=== PATIENT | female | born 1950 | race Caucasian/White ===

== ENCOUNTER 2019-12-16 17:10 | Observation (INO) | payer MEDICARE, BC, SELFPAY ==
[2019-12-16] VITALS (23 sets, daily range): BP systolic 115–159; BP diastolic 67–113; PULSE 69–185; RESP 13–34; TEMP 36.4; O2SAT 93–98; BMI 28.3
--- NOTE | 2019-12-16 17:26 | DI.RAD.S_ITS ---
PROCEDURE: XR CHEST 1V INDICATIONS: chest pain TECHNIQUE: One view of the chest was acquired. COMPARISON: None. FINDINGS: Surgical changes and devices: None. Lungs and pleura: An incomplete inspiratory result is noted, causing a crowded appearance to the lung markings. No focal infiltrates are seen. No pneumothorax or significant pleural effusions are seen. Mediastinum: Mediastinal contours appear normal. Heart size is normal. Bones and chest wall: No suspicious bony lesions. Age-appropriate bony degenerative changes are seen. Overlying soft tissues appear unremarkable. IMPRESSION: Unremarkable portable chest for age. Dictated by: Daniel Arce M.D. on 12/16/2019 at 17:01 Approved by: Daniel Arce M.D. on 12/16/2019 at 17:01
[2019-12-16 17:40] LABS: Add Manual Diff / Slide Review NO; Basophils Absolute Auto 100 /uL (0-100); Basophils Percent Auto 1.3 % (0-2); Eosinophils Absolute Auto 0 /uL (0-450); Eosinophils Percent Auto 0.7 % (2-4); Hematocrit 46.1 % (36-46); Hemoglobin 15.4 g/dL (12.0-16.0); Lymphocytes Absolute Auto 2400 /uL (1100-4500); Lymphocytes Percent Auto 34.4 % (25-40); Mean Corpuscular HGB Conc 33.5 % (30-36); Mean Corpuscular Hemoglobin 31.7 PG (26-34); Mean Corpuscular Volume 94.6 fL (80-100); Monocytes Absolute Auto 600 /uL (0-900); Monocytes Percent Auto 8.6 % (3-14); Neutrophils Absolute Auto 3800 /uL (1500-7000); Platelet Count 125 X10^3/uL (150-400); Red Blood Cell Count 4.87 X10^6/uL (4.0-5.2); Red Cell Distribution Width 14.1 % (11.6-14.8); White Blood Cell Count 6.9 X10^3/uL (4.5-11.0)
[2019-12-16] MEDS: DILTIAZEM 125 MG/125 ML PIGGYBACK IV (17:50)
[2019-12-16] MEDS: dilTIAZem 5 MG/ML SDV 20 MG IV (17:50)
[2019-12-16 17:51] LABS: INR 1.1 (0.9-1.3); Prothrombin Time 12.7 SECONDS (10.1-12.7)
[2019-12-16 17:53] LABS: PTT Partial Thromboplastin Tim 27 SECONDS (26.4-36.2)
[2019-12-16 17:56] LABS: Alanine Aminotransferase 67 IU/L (<35); Albumin 3.9 g/dL (3.5-5.0); Albumin Globulin Ratio 1.6 (1.0-2.8); Alkaline Phosphatase 77 U/L (38-126); Aspartate Aminotransferase 67 IU/L (14-36); BUN Creatinine Ratio 26.7 (6-22); Bilirubin Total 0.9 mg/dL (0.2-1.3); Blood Urea Nitrogen 24 mg/dL (7-17); Calcium 9.4 mg/dL (8.4-10.2); Carbon Dioxide 20 mmol/L (22-32); Chloride 109 mmol/L (98-107); Creatine Kinase 70 U/L (30-135); Estimated Glomerular Filt Rate > 60.0 mL/min (>60); Globulin 2.5 g/dL (1.7-4.1); Glucose 110 mg/dL (80-110); HEMOLYSIS < 15 (0-50); Lipase 78 U/L (23-300); Magnesium 1.7 mg/dL (1.6-2.3); Sodium 138 mmol/L (137-145); Total Protein 6.4 g/dL (6.3-8.2)
[2019-12-16 17:57] LABS: D Dimer 324 ng/mL (<230)
[2019-12-16] MEDS: APIXABAN 5 MG TABLET PO (17:57)
[2019-12-16 18:08] LABS: Troponin I < 0.012 ng/mL (0.01-0.034)
--- NOTE | 2019-12-16 18:27 | ED.CHESTPAIN ---
HPI - Chest Pain General Chief Complaint: Chest Pain Stated Complaint: HARD TO CATCH A BREATH NOT EATING WELL NOT SLEEPIN Time Seen by Provider: 12/16/19 17:34 Source: patient Mode of arrival: Ambulatory Limitations: no limitations History of Present Illness HPI narrative: 69-year-old woman presents with severe dyspnea and is found to be in atrial fibrillation with rapid ventricular response. She notes that her symptoms started in mid September with increasing sinus pain and pressure and reflux issues. She saw her physician in [place] was started on proton pump inhibitor. Seen again in October with continued complaints of sinus fullness postnasal drip and intermittent episodes of dyspnea. This visit was via telemedicine and it was felt to be acute bacterial sinusitis and antibiotics as well as decongestants were prescribed. She did feel a bit better at that point. Through the month of October she had continued intermittent episodes of severe dyspnea that she attributed to mask wearing. They had no sensation of tachycardia or chest pain. With today she describes a feeling of general malaise and ?crappy? feeling for the last 4 days with poor sleep difficulty laying flat in significantly increasing dyspnea. Again no chest pain and no sensation of palpitations or rapid heart rate. No lower extremity edema. Of note, they do live in [facility] and have been traveling back and forth between [facility] recently. The travel is driving. Related Data Allergies Allergy/AdvReac Type Severity Reaction Status Date / Time No Known Drug Allergies Allergy Verified 12/16/19 17:18 Review of Systems Review of Systems Narrative: Pertinent positive and negative findings as per HPI Remainder of review of systems is otherwise unremarkable for Constitutional: Fevers, CV: Chest pain, palpitations, Respiratory: Cough, wheeze, GI: Nausea, vomiting, diarrhea, change in bowel habits, black or bloody stools : Dysuria, hematuria, flank pain MS: Muscle weakness, numbness, joint swelling or warmth Skin: Rashes, nonhealing lesions Neuro: Syncope, dizziness, tingling Patient History Medical History Acid reflux (Acute) Atrial fibrillation (Acute) Social History Smoking Status: Never smoker Smoking Status: Never smoker alcohol intake frequency: holidays/special occasions only Substance Use Type: does not use Exam Narrative Exam Narrative: General: Healthy appearing, acutely dyspneic able to speak and only 2-3 word sentences not using accessory muscles HEENT: Moist mucous membranes, normal sclera with reactive pupils, Neck: No JVD, supple Respiratory: Lungs are clear to auscultation, no wheezing no rales no rhonchi. Full and symmetrical air movement Cardiac: Rapid and irregular without murmurs or bruits Abdomen: Soft nontender good bowel tones, no flank pain Skin: Warm and dry, no rashes Neurologic: Grossly neurologically intact with no obvious asymmetries or abnormalities Extremities: No trauma, well perfused, no lower extremity edema Psych: Cooperative, appropriate insight and affect Initial Vital Signs Initial Vital Signs: Vital Signs Temperature 97.5 F L 12/16/19 17:18 Pulse Rate 69 12/16/19 17:18 Respiratory Rate 28 H 12/16/19 17:18 Pulse Oximetry 98 12/16/19 17:18 Course Orders Ordered: ED Orders 12/16/19 17:26 XR chest 1V Stat EKG-12 Lead Stat 12/16/19 17:32 Complete Blood Count AUTO DIFF Stat Comprehensive Metabolic Panel Stat D Dimer Stat Lipase Stat Magnesium Stat Partial Thromboplastin Time Stat Prothrombin Time INR Stat Troponin & CK Cardiac Panel Stat 12/16/19 18:42 CT angio chest PE protocol Stat DILTIAZEM (Diltiazem 125 Mg/125 Ml-D5w) 125 mg in 125 mls @ 5 mls/hr IV TITRATE MIK; Protocol Last Titration: 12/16/19 18:32 Dose: 10 mg/hr, 10 mls/hr Documented by: Admin: 12/16/19 17:50 Dose: 5 mg/hr, 5 mls/hr Documented by: HOMERO Discontinued Medications Apixaban (Eliquis) 5 mg PO NOW ONE Stop: 12/16/19 17:48 Last Admin: 12/16/19 17:57 Dose: 5 mg Documented by: HOMERO Diltiazem HCl (Cardizem) 20 mg IV NOW ONE Stop: 12/16/19 17:45 Last Admin: 12/16/19 17:50 Dose: 20 mg Documented by: HOMERO Metoprolol Tartrate (Lopressor) 12.5 mg PO NOW ONE Stop: 12/16/19 18:50 Last Admin: 12/16/19 18:57 Dose: 12.5 mg Documented by: MARIA MM Vital Signs Vital signs: Vital Signs - 8 hr 12/16/19 17:18 12/16/19 17:27 12/16/19 17:28 Temperature 97.5 F L Pulse Rate 69 184 H Respiratory Rate 28 H 33 H Blood Pressure 157/103 H Pulse Oximetry 98 95 12/16/19 17:30 12/16/19 17:50 12/16/19 17:52 Temperature Pulse Rate 185 H 153 H 158 H Respiratory Rate 21 13 Blood Pressure 154/113 H 159/99 H Pulse Oximetry 96 97 12/16/19 17:54 12/16/19 17:56 12/16/19 17:57 Temperature Pulse Rate 148 H 101 H 105 H Respiratory Rate 20 21 25 H Blood Pressure 128/67 128/79 Pulse Oximetry 97 95 96 12/16/19 17:58 12/16/19 17:59 12/16/19 18:00 Temperature Pulse Rate 104 H 101 H 104 H Respiratory Rate 27 H 26 H 20 Blood Pressure 121/88 120/86 Pulse Oximetry 95 94 95 12/16/19 18:01 Temperature Pulse Rate 106 H Respiratory Rate 23 Blood Pressure 132/82 Pulse Oximetry 94 MDM - Chest Pain Medical Records Data Attestation: I reviewed the patient's medical records. Lab Data Attestation: I reviewed the patient's lab results. Result diagrams: 12/16/19 17:32 12/16/19 17:32 Labs: Lab Results 12/16/19 12/16/19 12/16/19 Range/Units 17:32 17:32 17:32 WBC 6.9 (4.5-11.0) X10^3/uL RBC 4.87 (4.0-5.2) X10^6/uL Hgb 15.4 (12.0-16.0) g/dL Hct 46.1 H (36-46) % MCV 94.6 (80-100) fL MCH 31.7 (26-34) PG MCHC 33.5 (30-36) % RDW 14.1 (11.6-14.8) % Plt Count 125 L (150-400) X10^3/uL Neut % (Auto) 55.0 (50-75) % Lymph % (Auto) 34.4 (25-40) % Dale % (Auto) 8.6 (3-14) % Eos % (Auto) 0.7 L (2-4) % Baso % (Auto) 1.3 (0-2) % Neut # (Auto) 3800 (9946-8291) /uL Lymph # (Auto) 2400 (8691-9303) /uL Dale # (Auto) 600 (0-900) /uL Eos # (Auto) 0 (0-450) /uL Baso # (Auto) 100 (0-100) /uL PT 12.7 (10.1-12.7) SECONDS INR 1.1 (0.9-1.3) APTT 27 (26.4-36.2) SECONDS D-Dimer (<230) ng/mL Sodium 138 (137-145) mmol/L Potassium 4.0 (3.4-5.1) mmol/L Chloride 109 H (98-107) mmol/L Carbon Dioxide 20 L (22-32) mmol/L BUN 24 H (7-17) mg/dL Creatinine 0.90 (0.52-1.04) mg/dL Estimated GFR > 60.0 (>60) mL/min BUN/Creatinine Ratio 26.7 H (6-22) Glucose 110 (80-110) mg/dL Calcium 9.4 (8.4-10.2) mg/dL Magnesium 1.7 (1.6-2.3) mg/dL Total Bilirubin 0.9 (0.2-1.3) mg/dL AST 67 H (14-36) IU/L ALT 67 H (<35) IU/L Alkaline Phosphatase 77 (38-126) U/L Total Creatine Kinase 70 (30-135) U/L CK-MB (CK-2) TNP CK-MB (CK-2) Rel Index TNP Troponin I < 0.012 (0.01-0.034) ng/mL Total Protein 6.4 (6.3-8.2) g/dL Albumin 3.9 (3.5-5.0) g/dL Globulin 2.5 (1.7-4.1) g/dL Albumin/Globulin Ratio 1.6 (1.0-2.8) Lipase 78 (23-300) U/L 08// Range/Units 17:32 WBC (4.5-11.0) X10^3/uL RBC (4.0-5.2) X10^6/uL Hgb (12.0-16.0) g/dL Hct (36-46) % MCV (80-100) fL MCH (26-34) PG MCHC (30-36) % RDW (11.6-14.8) % Plt Count (150-400) X10^3/uL Neut % (Auto) (50-75) % Lymph % (Auto) (25-40) % Dale % (Auto) (3-14) % Eos % (Auto) (2-4) % Baso % (Auto) (0-2) % Neut # (Auto) (6543-8621) /uL Lymph # (Auto) (3662-7947) /uL Dale # (Auto) (0-900) /uL Eos # (Auto) (0-450) /uL Baso # (Auto) (0-100) /uL PT (10.1-12.7) SECONDS INR (0.9-1.3) APTT (26.4-36.2) SECONDS D-Dimer 324 H (<230) ng/mL Sodium (137-145) mmol/L Potassium (3.4-5.1) mmol/L Chloride (98-107) mmol/L Carbon Dioxide (22-32) mmol/L BUN (7-17) mg/dL Creatinine (0.52-1.04) mg/dL Estimated GFR (>60) mL/min BUN/Creatinine Ratio (6-22) Glucose (80-110) mg/dL Calcium (8.4-10.2) mg/dL Magnesium (1.6-2.3) mg/dL Total Bilirubin (0.2-1.3) mg/dL AST (14-36) IU/L ALT (<35) IU/L Alkaline Phosphatase (38-126) U/L Total Creatine Kinase (30-135) U/L CK-MB (CK-2) CK-MB (CK-2) Rel Index Troponin I (0.01-0.034) ng/mL Total Protein (6.3-8.2) g/dL Albumin (3.5-5.0) g/dL Globulin (1.7-4.1) g/dL Albumin/Globulin Ratio (1.0-2.8) Lipase (23-300) U/L Imaging Data Chest x-ray: Radiologist's Impression: IMPRESSION: Unremarkable portable chest for age. Dictated by: Daniel Arce M.D. on 12/16/2019 at 17:01 ECG Data Attestation: I personally reviewed and interpreted this ECG as follows: Interpretation: Atrial fibrillation with rapid ventricular response at a rate of[address] T wave changes MDM Narrative Medical decision making narrative: 69-year-old woman with no prior history of atrial fibrillation with intermittent episodes of dyspnea that she had associated with wearing masks outside recently. She is significantly short of breath on arrival and has no sensation of her heart rate 160-180. She has been traveling recently but reports no significant lower extremity asymmetries. I suspect that she has been having intermittent episodes of atrial fibrillation for the last at least a month if not longer. For that reason cardioversion in the emergency department is not appropriate given her stroke Risk. She was given 20 mg of IV diltiazem and a diltiazem drip was started. Rate is better controlled in the 120 range and diltiazem is being increased currently. Slightly elevated D-dimer PE study will be done given the recent travel and new atrial fibrillation. Care is reviewed with Dr. Lim. He requests 12.5 mg of the immediate release metoprolol to be added to her regimen. She will be admitted to the ICU, observation status. Critical Care Time Critical Care Time Critical Care Time: Yes Total Critical Care Time: 33 Attestation: Critical care time is separate from other billable procedures. This critical care time includes consultation with family and other consulting doctors, review of records, and interpretation of data from labs, EKGs and imaging as well as managements of acute undifferentiated respiratory distress and atrial fibrillation with rapid ventricular response and hemodynamic instability. Discharge Plan Departure Patient Disposition: Admitted as Observation Clinical Impression: Atrial fibrillation with rapid ventricular response
--- NOTE | 2019-12-16 18:42 | DI.CT.S_ITS ---
PROCEDURE: CT ANGIO CHEST PE PROTOCOL INDICATIONS: elevated ddimer, new afib TECHNIQUE: After the administration of intravenous contrast, 2 mm thick sections acquired from the pulmonary apices to the posterior costophrenic angles. 3-dimensional maximum intensity projection (MIP) coronal and sagittal reformats were then acquired through the thorax. For radiation dose reduction, the following was used: automated exposure control, adjustment of mA and/or kV according to patient size. COMPARISON: None. FINDINGS: Image quality: Excellent. Pulmonary arteries: The main pulmonary artery is mildly enlarged, measuring up to 3.1 centimeters in diameter. No intraluminal filling defect is seen to suggest central pulmonary embolism. Lungs and pleura: Lungs are clear. No pleural effusions or pneumothorax. Central and peripheral airways are patent. A 6 mm perifissural nodule is seen in the right middle lobe. Small bilateral pleural effusions are seen, slightly worse on the right, with atelectasis of the adjacent lung bases. Mediastinum: Heart size is normal, without pericardial effusion. No mediastinal or hilar adenopathy. There is mild ectasia of the ascending thoracic aorta measuring up to 4.2 centimeters in short axis diameter. Mild atherosclerotic calcifications are seen in the aorta and coronary arteries. Esophagus is normal in caliber, without hiatal hernia. Bones and chest wall: No suspicious bony lesions. Ribs and thoracic spine appear intact throughout. Thyroid gland appears normal. No axillary or supraclavicular adenopathy. Abdomen: Visualized upper abdominal solid organs appear normal in the early arterial phase of enhancement. A gastric band is noted. IMPRESSION: 1. No pulmonary embolus is seen. 2. Small bilateral pleural effusions with atelectasis of the lung bases. 3. Mild enlargement of the main pulmonary artery to 3.1 cm is nonspecific, but can be seen in setting of pulmonary hypertension. 1. Dictated by: Husam Jeter M.D. on 12/16/2019 at 19:47 Approved by: Husam Jeter M.D. on 12/16/2019 at 19:55
[2019-12-16] MEDS: METOPROLOL IR 25 MG TABLET 12.5 MG PO (18:57)
--- NOTE | 2019-12-16 20:20 | ED.CHESTPAIN ---
HPI - Chest Pain General Source: patient Mode of arrival: Ambulatory Limitations: no limitations Related Data Home Medications Medication Instructions Recorded Confirmed mecobalamin (vitamin B12) 1,000 mcg PO DAILY 12/16/19 12/16/19 melatonin 10 mg PO BEDTIME 12/16/19 12/16/19 Allergies Allergy/AdvReac Type Severity Reaction Status Date / Time No Known Drug Allergies Allergy Verified 12/16/19 17:18 Patient History Medical History Acid reflux (Acute) Atrial fibrillation (Acute) Social History household members: spouse Smoking Status: Former smoker alcohol intake: current Smoking Status: Never smoker alcohol intake frequency: holidays/special occasions only Substance Use Type: does not use Exam Initial Vital Signs Initial Vital Signs: Vital Signs Temperature 97.5 F L 12/16/19 17:18 Pulse Rate 69 12/16/19 17:18 Respiratory Rate 28 H 12/16/19 17:18 Pulse Oximetry 98 12/16/19 17:18 Course Orders Ordered: ED Orders 12/16/19 17:26 XR chest 1V Stat EKG-12 Lead Stat 12/16/19 17:32 Complete Blood Count AUTO DIFF Stat Comprehensive Metabolic Panel Stat D Dimer Stat Lipase Stat Magnesium Stat Partial Thromboplastin Time Stat Prothrombin Time INR Stat Troponin & CK Cardiac Panel Stat 12/16/19 18:42 CT angio chest PE protocol Stat Acetaminophen (Tylenol) 650 mg PO Q6HR PRN PRN Reason: Fever DILTIAZEM (Diltiazem 125 Mg/125 Ml-D5w) 125 mg in 125 mls @ 5 mls/hr IV TITRATE MIK; Protocol Last Titration: 12/16/19 21:35 Dose: 10 mg/hr, 10 mls/hr Documented by: Titration: 12/16/19 18:32 Dose: 10 mg/hr, 10 mls/hr Documented by: Admin: 12/16/19 17:50 Dose: 5 mg/hr, 5 mls/hr Documented by: HOMERO Naloxone HCl (Narcan) 0.2 mg IV Q2MIN PRN PRN Reason: Opiate Reversal Discontinued Medications Apixaban (Eliquis) 5 mg PO NOW ONE Stop: 12/16/19 17:48 Last Admin: 12/16/19 17:57 Dose: 5 mg Documented by: HOMERO Diltiazem HCl (Cardizem) 20 mg IV NOW ONE Stop: 12/16/19 17:45 Last Admin: 12/16/19 17:50 Dose: 20 mg Documented by: HOMERO Diltiazem HCl 125 mg/ Dextrose 125 mls @ 5 mls/hr IV TITRATE MIK; Protocol Last Admin: 12/16/19 22:33 Dose: Not Given Documented by: CATALINA Magnesium Sulfate (Magnesium Sulfate) 2 gm in 50 mls @ 25 mls/hr IV NOW ONE Stop: 12/16/19 22:33 Last Admin: 12/16/19 22:36 Dose: 25 mls/hr Documented by: CATALINA Cosigned by: CHECO Metoprolol Tartrate (Lopressor) 12.5 mg PO NOW ONE Stop: 12/16/19 18:50 Last Admin: 12/16/19 18:57 Dose: 12.5 mg Documented by: LOTUS Vital Signs Vital signs: Vital Signs - 8 hr 12/16/19 17:18 12/16/19 17:27 12/16/19 17:28 Temperature 97.5 F L Pulse Rate 69 184 H Respiratory Rate 28 H 33 H Blood Pressure 157/103 H Pulse Oximetry 98 95 12/16/19 17:30 12/16/19 17:50 12/16/19 17:52 Temperature Pulse Rate 185 H 153 H 158 H Respiratory Rate 21 13 Blood Pressure 154/113 H 159/99 H Pulse Oximetry 96 97 12/16/19 17:54 12/16/19 17:56 12/16/19 17:57 Temperature Pulse Rate 148 H 101 H 105 H Respiratory Rate 20 21 25 H Blood Pressure 128/67 128/79 Pulse Oximetry 97 95 96 12/16/19 17:58 12/16/19 17:59 12/16/19 18:00 Temperature Pulse Rate 104 H 101 H 104 H Respiratory Rate 27 H 26 H 20 Blood Pressure 121/88 120/86 Pulse Oximetry 95 94 95 12/16/19 18:01 12/16/19 18:30 12/16/19 19:00 Temperature Pulse Rate 106 H 114 H 124 H Respiratory Rate 23 34 H 27 H Blood Pressure 132/82 137/95 H 125/87 Pulse Oximetry 94 93 94 12/16/19 19:30 12/16/19 20:00 12/16/19 20:21 Temperature Pulse Rate 111 H 107 H 103 H Respiratory Rate 21 19 24 Blood Pressure Pulse Oximetry 97 95 96 12/16/19 20:22 12/16/19 20:23 Temperature Pulse Rate 112 H 105 H Respiratory Rate 32 H 22 Blood Pressure 127/93 H Pulse Oximetry 94 94 MDM - Chest Pain Lab Data Result diagrams: 12/16/19 17:32 12/16/19 17:32 Labs: Lab Results 12/16/19 12/16/19 12/16/19 Range/Units 17:32 17:32 17:32 WBC 6.9 (4.5-11.0) X10^3/uL RBC 4.87 (4.0-5.2) X10^6/uL Hgb 15.4 (12.0-16.0) g/dL Hct 46.1 H (36-46) % MCV 94.6 (80-100) fL MCH 31.7 (26-34) PG MCHC 33.5 (30-36) % RDW 14.1 (11.6-14.8) % Plt Count 125 L (150-400) X10^3/uL Neut % (Auto) 55.0 (50-75) % Lymph % (Auto) 34.4 (25-40) % [place] % (Auto) 8.6 (3-14) % Eos % (Auto) 0.7 L (2-4) % Baso % (Auto) 1.3 (0-2) % Neut # (Auto) 3800 (9776-0064) /uL Lymph # (Auto) 2400 (9207-4936) /uL [place] # (Auto) 600 (0-900) /uL Eos # (Auto) 0 (0-450) /uL Baso # (Auto) 100 (0-100) /uL PT 12.7 (10.1-12.7) SECONDS INR 1.1 (0.9-1.3) APTT 27 (26.4-36.2) SECONDS D-Dimer (<230) ng/mL Sodium 138 (137-145) mmol/L Potassium 4.0 (3.4-5.1) mmol/L Chloride 109 H (98-107) mmol/L Carbon Dioxide 20 L (22-32) mmol/L BUN 24 H (7-17) mg/dL Creatinine 0.90 (0.52-1.04) mg/dL Estimated GFR > 60.0 (>60) mL/min BUN/Creatinine Ratio 26.7 H (6-22) Glucose 110 (80-110) mg/dL Calcium 9.4 (8.4-10.2) mg/dL Magnesium 1.7 (1.6-2.3) mg/dL Total Bilirubin 0.9 (0.2-1.3) mg/dL AST 67 H (14-36) IU/L ALT 67 H (<35) IU/L Alkaline Phosphatase 77 (38-126) U/L Total Creatine Kinase 70 (30-135) U/L CK-MB (CK-2) TNP CK-MB (CK-2) Rel Index TNP Troponin I < 0.012 (0.01-0.034) ng/mL Total Protein 6.4 (6.3-8.2) g/dL Albumin 3.9 (3.5-5.0) g/dL Globulin 2.5 (1.7-4.1) g/dL Albumin/Globulin Ratio 1.6 (1.0-2.8) Lipase 78 (23-300) U/L 08/25/20 Range/Units 17:32 WBC (4.5-11.0) X10^3/uL RBC (4.0-5.2) X10^6/uL Hgb (12.0-16.0) g/dL Hct (36-46) % MCV (80-100) fL MCH (26-34) PG MCHC (30-36) % RDW (11.6-14.8) % Plt Count (150-400) X10^3/uL Neut % (Auto) (50-75) % Lymph % (Auto) (25-40) % [place] % (Auto) (3-14) % Eos % (Auto) (2-4) % Baso % (Auto) (0-2) % Neut # (Auto) (3610-3964) /uL Lymph # (Auto) (9773-5998) /uL [place] # (Auto) (0-900) /uL Eos # (Auto) (0-450) /uL Baso # (Auto) (0-100) /uL PT (10.1-12.7) SECONDS INR (0.9-1.3) APTT (26.4-36.2) SECONDS D-Dimer 324 H (<230) ng/mL Sodium (137-145) mmol/L Potassium (3.4-5.1) mmol/L Chloride (98-107) mmol/L Carbon Dioxide (22-32) mmol/L BUN (7-17) mg/dL Creatinine (0.52-1.04) mg/dL Estimated GFR (>60) mL/min BUN/Creatinine Ratio (6-22) Glucose (80-110) mg/dL Calcium (8.4-10.2) mg/dL Magnesium (1.6-2.3) mg/dL Total Bilirubin (0.2-1.3) mg/dL AST (14-36) IU/L ALT (<35) IU/L Alkaline Phosphatase (38-126) U/L Total Creatine Kinase (30-135) U/L CK-MB (CK-2) CK-MB (CK-2) Rel Index Troponin I (0.01-0.034) ng/mL Total Protein (6.3-8.2) g/dL Albumin (3.5-5.0) g/dL Globulin (1.7-4.1) g/dL Albumin/Globulin Ratio (1.0-2.8) Lipase (23-300) U/L Discharge Plan Departure Patient Disposition: Admitted as Observation Clinical Impression: Atrial fibrillation with rapid ventricular response Discharge Date/Time: 12/16/19 20:35 Admit Date/Time: 12/16/19 20:26
[2019-12-16 22:02] LABS: COVID19 -Nasal RAPID Negative (Negative)
[2019-12-16] MEDS: MAGNESIUM SULFATE 2 GM/50 ML PIGGYBACK IV (22:36)
--- NOTE | 2019-12-16 22:54 | P.HP_ITS ---
History of Present Illness History of Present Illness Date Patient Seen: 12/16/19 Time Patient Seen: 22:00 Chief complaint: Shortness of breath found to be in atrial fib Narrative: Kevin Mayfield is a pleasant 69 y.o. seasonal resident of [facility] who has a history of seasonal allergies presented to the ED after developing fairly sudden shortness of breath. She had been working with her PCP in [facility] with symptoms of nasal congestion, headaches and cough. Initially she started taking over the counter decongestants, then given Azit hromycin for a a presumed sinus infection. She states her breathing problems are attributable to wearing masks and have tried a number of different styles of masks with no avail. Today her shortness of breath felt like a previous case of pneumonia she had a number of years ago. She was unable to take in a deep breath. She has a persistent headache she attributes to her sinuses. Denies intentional weight loss, has not had much of an appetite, she does endorse fullness sensation in both ears and nasal congestion, has been nauseous but no vomiting. Denies chest pain, palpitations, states normally has low blood pressure. Denies dysurea, diarrhea or constipation, numbing or tingling of her upper or lower extremities. She does not take any chronic disease prescription medications, just supplements. In the ED, EKG indicated atrial fibrillation and she was initially given diltiazem 20 mg IV then intiated on a diltiazem drip. She was also given apixaban for anticoagulation. She is afebrile her blood pressure is 116/84, heart rate 88 and irregular, respiratory rate of 29, oxygen saturation of 94% on 3 L, she weighs 77.1 kg with a BMI of 28.3. White count is generally within normal limits except for low platelet count of a 125, INR is 1.1, D-dimer was 324 however PE has been ruled out by chest CTA, sodium 138, potassium 4.0, chloride 109, bicarb 20, BUN 24, GFR is greater than 60, creatinine is 0.9, glucose 110, calcium 9.4, magnesium 1.7, AST is 67, ALT 67 total bilirubin 0.9, troponin is negative at 0.012, COVID-19 is negative. Patient History Medical History Acid reflux (Acute) Atrial fibrillation (Acute) Surgical History History of section (Acute) History of vein stripping (Acute) Family & Social History Family History Mother Ovarian cancer Father Boat accident with submersion Social History: household members spouse Prior Living Arrangements House Safety & Behavioral: Feels Safe in Current Yes Environment Been Physically Hurt or No Threatened By a Person Suicidal Ideation Description None Suicide Plan Description No Plan Tobacco & Substance use: Smoking Status Former smoker alcohol intake current alcohol intake frequency holiday/special occasion Substance Use Type does not use Meds Home Medications and Allergies Home Medications Medication Instructions Recorded Confirmed Type mecobalamin (vitamin B12) 1,000 mcg PO DAILY 12/16/19 12/16/19 History melatonin 10 mg PO BEDTIME 12/16/19 12/16/19 History Allergies Allergy/AdvReac Type Severity Reaction Status Date / Time No Known Drug Allergies Allergy Verified 12/16/19 17:18 Review of Systems Review of Systems ROS: Yes All systems reviewed with the patient and are negative except as otherwise documented Exam Vital Signs (past 8 hours): - 12/16/19 17:18 12/16/19 17:27 12/16/19 17:28 Temperature 97.5 F L Pulse Rate 69 184 H Respiratory Rate 28 H 33 H Blood Pressure 157/103 H Pulse Oximetry 98 95 12/16/19 17:30 12/16/19 17:50 12/16/19 17:52 Temperature Pulse Rate 185 H 153 H 158 H Respiratory Rate 21 13 Blood Pressure 154/113 H 159/99 H Pulse Oximetry 96 97 12/16/19 17:54 12/16/19 17:56 12/16/19 17:57 Temperature Pulse Rate 148 H 101 H 105 H Respiratory Rate 20 21 25 H Blood Pressure 128/67 128/79 Pulse Oximetry 97 95 96 12/16/19 17:58 12/16/19 17:59 12/16/19 18:00 Temperature Pulse Rate 104 H 101 H 104 H Respiratory Rate 27 H 26 H 20 Blood Pressure 121/88 120/86 Pulse Oximetry 95 94 95 12/16/19 18:01 12/16/19 18:30 12/16/19 19:00 Temperature Pulse Rate 106 H 114 H 124 H Respiratory Rate 23 34 H 27 H Blood Pressure 132/82 137/95 H 125/87 Pulse Oximetry 94 93 94 12/16/19 19:30 12/16/19 20:00 12/16/19 20:21 Temperature Pulse Rate 111 H 107 H 103 H Respiratory Rate 21 19 24 Blood Pressure Pulse Oximetry 97 95 96 12/16/19 20:22 12/16/19 20:23 12/16/19 20:30 Temperature Pulse Rate 112 H 105 H 105 H Respiratory Rate 32 H 22 21 Blood Pressure 127/93 H 130/93 H Pulse Oximetry 94 94 94 12/16/19 21:00 Temperature Pulse Rate 87 Respiratory Rate 15 Blood Pressure 115/92 H Pulse Oximetry 94 Oxygen Delivery Method Room Air Oxygen Flow Rate 3 Narrative Exam Narrative: Gen: Alert, oriented, well-developed 69 y.o. female, NAD HEENT: normocephalic, atraumatic, conjunctiva clear, sclera non-icteric, oral mucosa pink and moist Neck: supple, full ROM, no JVD, trachea is midline Resp: Lungs CTA, non-labored breathing CV: irregular, no murmur or rubs Abd: soft, non-tender, normoactive BTs Skin: no lesions or rashes, dry and intact Neuro: Alert and oriented X 4 w/no focal deficits. Speech clear and coherent. Extremities: moves all 4 extremities, is ambulatory, negative Razia?s sign Psyche: normal mood and affect. Objective Labs Result Diagrams: 12/16/19 17:32 12/16/19 17:32 Labs: Laboratory Results - last 24 hr 12/16/19 12/16/19 12/16/19 17:32 17:32 17:32 WBC 6.9 RBC 4.87 Hgb 15.4 Hct 46.1 H MCV 94.6 MCH 31.7 MCHC 33.5 RDW 14.1 Plt Count 125 L Neut % (Auto) 55.0 Lymph % (Auto) 34.4 [place] % (Auto) 8.6 Eos % (Auto) 0.7 L Baso % (Auto) 1.3 Neut # (Auto) 3800 Lymph # (Auto) 2400 [place] # (Auto) 600 Eos # (Auto) 0 Baso # (Auto) 100 PT 12.7 INR 1.1 APTT 27 D-Dimer Sodium 138 Potassium 4.0 Chloride 109 H Carbon Dioxide 20 L BUN 24 H Creatinine 0.90 Estimated GFR > 60.0 BUN/Creatinine Ratio 26.7 H Glucose 110 Calcium 9.4 Magnesium 1.7 Total Bilirubin 0.9 AST 67 H ALT 67 H Alkaline Phosphatase 77 Total Creatine Kinase 70 CK-MB (CK-2) TNP CK-MB (CK-2) Rel Index TNP Troponin I < 0.012 Total Protein 6.4 Albumin 3.9 Globulin 2.5 Albumin/Globulin Ratio 1.6 Lipase 78 COVID-19 PCR 12/16/19 12/16/19 17:32 20:28 WBC RBC Hgb Hct MCV MCH MCHC RDW Plt Count Neut % (Auto) Lymph % (Auto) [place] % (Auto) Eos % (Auto) Baso % (Auto) Neut # (Auto) Lymph # (Auto) [place] # (Auto) Eos # (Auto) Baso # (Auto) PT INR APTT D-Dimer 324 H Sodium Potassium Chloride Carbon Dioxide BUN Creatinine Estimated GFR BUN/Creatinine Ratio Glucose Calcium Magnesium Total Bilirubin AST ALT Alkaline Phosphatase Total Creatine Kinase CK-MB (CK-2) CK-MB (CK-2) Rel Index Troponin I Total Protein Albumin Globulin Albumin/Globulin Ratio Lipase COVID-19 PCR Negative Assessment & Plan Assessment & Plan narrative: Kevin Ortiz will be admitted to ICU observation due to being on a diltiazem drip which will be discontinued if and when when she converts. New onset atrial fibrillation -echo in the am -Trend a second troponin -cardiac monitoring -she will need to get set up w/a local PCP and tobacco sprayer -stay on diltiazem drip until heart rate is sustained in the 60s -She will need to be anticoagulated and was started on Eliquis 5 mg bid. -fasting lipid panel in the am Consults: none Patient is observation in the ICU status as her stay is not likely to exceed 2 midnights. FEN: Saline lock, low sodium diet, BMP and magnesium in the am. VTE prophylaxis: Bilateral SCDs Dispo: Probable discharge to home w/PCP and cardiology referral Code Status: Full code as discussed with patient COVID-19 COVID-19 status: Negative Result date/Date tested (Pos, Neg/Pending): 12/16/19
[2019-12-16] MEDS: ACETAMINOPHEN 325 MG TABLET 650 MG PO (23:33)
[2019-12-16 23:54] LABS: Troponin I < 0.012 ng/mL (0.01-0.034)
[2019-12-17] VITALS (14 sets, daily range): BP systolic 97–140; BP diastolic 63–90; PULSE 75–106; RESP 13–23; TEMP 36.3–36.8; O2SAT 90–98
[2019-12-17 05:26] LABS: Cholesterol 117 mg/dL (140-199); HDL Cholesterol 44 mg/dL (40-60); LDL Cholesterol Calculated 41 mg/dL (<100); Triglycerides 162 mg/dL (35-150)
[2019-12-17 05:27] LABS: BUN Creatinine Ratio 24.7 (6-22); Blood Urea Nitrogen 18 mg/dL (7-17); Calcium 8.7 mg/dL (8.4-10.2); Carbon Dioxide 22 mmol/L (22-32); Chloride 110 mmol/L (98-107); Estimated Glomerular Filt Rate > 60.0 mL/min (>60); Glucose 85 mg/dL (80-110); HEMOLYSIS 18 (0-50); Magnesium 2.2 mg/dL (1.6-2.3); Potassium 3.7 mmol/L (3.4-5.1); Sodium 138 mmol/L (137-145)
[2019-12-17 05:29] LABS: Add Manual Diff / Slide Review NO; Basophils Absolute Auto 100 /uL (0-100); Eosinophils Absolute Auto 100 /uL (0-450); Eosinophils Percent Auto 1.5 % (2-4); Hemoglobin 13.6 g/dL (12.0-16.0); Lymphocytes Absolute Auto 2200 /uL (1100-4500); Lymphocytes Percent Auto 38.3 % (25-40); Mean Corpuscular HGB Conc 33.2 % (30-36); Mean Corpuscular Hemoglobin 31.5 PG (26-34); Mean Corpuscular Volume 94.8 fL (80-100); Monocytes Absolute Auto 600 /uL (0-900); Monocytes Percent Auto 9.7 % (3-14); Neutrophils Absolute Auto 2900 /uL (1500-7000); Neutrophils Percent Auto 49.5 % (50-75); Platelet Count 100 X10^3/uL (150-400); Red Blood Cell Count 4.32 X10^6/uL (4.0-5.2); Red Cell Distribution Width 14.1 % (11.6-14.8); White Blood Cell Count 5.9 X10^3/uL (4.5-11.0)
[2019-12-17] MEDS: TRAMADOL 50 MG TABLET PO (05:37)
[2019-12-17] MEDS: DILTIAZEM 125 MG/125 ML PIGGYBACK 10 MG IV (05:37)
[2019-12-17 06:10] LABS: Thyroid Stimulating Hormone 4.65 uIU/mL (0.47-4.68)
[2019-12-17] MEDS: ACETAMINOPHEN 325 MG TABLET 650 MG PO (08:53)
[2019-12-17] MEDS: dilTIAZem CD 240 MG CAP PO (08:53)
[2019-12-17] MEDS: APIXABAN 5 MG TABLET PO ×2 (08:53→21:11)
--- NOTE | 2019-12-17 12:05 | PC.NURSE ---
PT ALERT AND ORIENTED C/O HEADACHE AND DYSPNEA ON EXERTION- NOT REQUIRING SUPPLEMENTAL O2 (SPO2 93-96% ON RA)- SHE CONTINUES IN AFIB RATE CONTROLLED AT MID 90'S - DILT GTT TURNED TO OFF AFTER ADMINISTERING DILTIAZEM PO- ECHO PENDING AND DISPOSITON FOLLOWING ECHO RESULTS - INITIATED LIZZY THIS AM- SPOKE AT LENGTH WITH BOTH PT AND SPOUSE
--- NOTE | 2019-12-17 12:10 | CM.DANOTE ---
Patient is a 69 year old female who was admitted on 12/16/19 for SOB, lack of appetite. Pt has MCR and BCBS Out State Reg for insurance and her PCP is in [place]. EMR was reviewed. Per , pt with hx of seasonal allergies that she has been working with her PCP on but now admits with new AFIB. Pt not stable for d/c yet today and will likely need close PCP follow up and Gear Cutting Machine Operator outpt follow up at d/c. SW met bedside with pt and spouse and they confirm that they live most of the year in [place] but have a summer place on [facility] [address] and plan to stay another couple weeks before returning to [place]. Pt states that she has participated in TeleHealth with her PCP via ipad and can easily have close followup with her PCP in [place] at d/c. SW provided the local PCP list though in case a local doctor would be more beneficial. Pt aware that she will likely need to have an appointment with a Gear Cutting Machine Operator at d/c. Pt is active and independent with ADL's at baseline and drives and does not use DME to ambulate. Preference is to d/c home with spouse today or tomorrow when stable. Pt and spouse do not anticipate any SW needs. Plan: SW to follow for likely pt d/c home via spouse POV when medically stable and close follow up with PCP and referral to Gear Cutting Machine Operator outpt. CHARISSA Rojas Discharge Planning/Care Management CM Discharge Assessment Start: 12/17/19 12:07 Freq: Status: Active Protocol: Document 12/17/19 12:07 (Rec: 12/17/19 12:10 [id number]) Discharge Planning Assessment Assigned Business Planning Analyst CHARISSA Siegel DPOA/Assigned Designee Name informally spouse Juve Contact Information [phone] Advance Directives? No Advance Directives on File No History Provided By Patient,Significant Other, Medical Record Has Patient been admitted in last 30 No days? Prior Living Arrangements House Household Members spouse Type of transporation used prior to Drives own vehicle admit Independent with ADL's Yes Is patient alert and oriented? Yes Caregiver for Another No Comment Likely home with outpt Cardiology follow up Barriers to Discharge No Discharge Plan Home Transportation Arrangement Spouse bedside and can provide transport home at d/c Referrals Initiated None needed Whiteboard Updated in Patient Room with Yes name and ext. # of Business Planning Analyst Review Status In Process Please Provide Date Initial DC 12/17/19 Assessment Was Performed Next Review Type Continued Stay Review
--- NOTE | 2019-12-17 12:51 | DI.ECHO.S_ITS ---
Echocardiogram Report + + :Name: JORDAN ANGUIANO Study Date: 12/17/2019 Height: 65 in : :[facility] Weight: 170 lb : : Gender: Female BSA: 1.8 m2 : :: 1950 Age: 69 yrs BP: 117/90 mmHg: :Reason For Study: Atrial fibrillation : : Performed By: Tabitha Waller : :Referring: SUMMER FINE : + + Interpretation Summary Left ventricular systolic function is mildly depressed in a global fashion with an estimated ejection fraction of 45 to 55% with considerable beat-tobeat variability due to atrial fibrillation. There are no focal wall motion abnormality. Left ventricular size and wall thickness are normal. The right ventricle is normal in size with mildly reduced systolic function. Right ventricular systolic pressure is estimated at 41 mmHg and a CVP of 8 mmHg. There is severe left atrial enlargement with moderate right atrial enlargement. There is moderate mitral and mild to moderate tricuspid regurgitation. The ascending aorta is moderately enlarged. 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 Procedure: A two-dimensional transthoracic echocardiogram with color flow and Doppler was performed. The study quality was technically adequate. There is no prior echocardiogram noted for this patient. The patient was in atrial fibrillation with heart rates between 90-115 bpm during the exam. Left Ventricle: The left ventricle is normal in size and wall thickness. Left ventricular systolic function is mildly reduced. Left ventricular ejection fraction is estimated to be 45 to 55% with considerable [id number] variability due to atrial fibrillation. There is mild global hypokinesis of the left ventricle. There are no focal wall motion abnormalities. Diastolic function could not be accurately assessed due to atrial fibrillation. Right Ventricle: The right ventricle is normal size. Right ventricular systolic function is mildly reduced. Atria: The left atrium is severely dilated. The right atrium is moderately dilated. There is no Doppler evidence for an interatrial shunt. Mitral Valve: The mitral valve leaflets appear borderline thickened, but open well. There is moderate mitral regurgitation. Aortic Valve: The aortic valve is trileaflet. The aortic valve is mildly calcified. There is minimally reduced leaflet mobility. There is no aortic valve stenosis. No aortic regurgitation is present. Tricuspid Valve: The tricuspid valve leaflets are thin and pliable. There is mild to moderate tricuspid regurgitation. The right ventricular systolic pressure is estimated to be at least 41 mmHg based on an estimated right atrial pressure of 8 mm Hg. Pulmonic Valve: The pulmonic valve leaflets are thin and pliable; valve motion is normal. There is no pulmonic valvular regurgitation. Great Vessels: The aortic root is normal size. The ascending aorta is moderately enlarged. The IVC is dilated (diameter is greater than 2.1 cm) yet it collapses greater than 50% with a sniff. This suggests a right atrial pressure of 8 mm Hg. Pericardium/ Pleura There is no pericardial effusion. There is no pleural effusion. MMode/2D Measurements & Calculations LVIDd: 5.0 cm LVOT diam: 2.0 cm LVIDs: 3.9 cm Ao root diam: 3.3 cm FS: 21.9 % asc Aorta Diam: 4.4 cm EPSS: 1.2 cm Ao Arch Diam (Prox Trans): 2.8 cm IVSd: 0.95 cm LVPWd: 0.86 cm LV camacho. diameter/BSA (cm/m^2): 2.7 LV sys. diameter/BSA (cm/m^2): 2.1 LA A2 area: 27.7 cm2 RA long axis: 5.9 cm LA A4 area: 25.5 cm2 RA area: 22.6 cm2 LA length (vol): 6.2 cm RA vol: 73.3 ml LA vol: 96.3 ml RA : 39.7 ml/m2 LA vol index: 52.2 ml/m2 IVC diam: 2.1 cm RVD1 (basal): 3.6 cm TAPSE: 1.5 cm Doppler Measurements & Calculations Ao V2 max: 139.7 cm/sec LVOT Max Bishop: 96.4 cm/sec Ao V2 mean: 104.8 cm/sec LV V1 max P.7 mmHg Ao max P.9 mmHg LV V1 VTI: 16.5 cm Ao mean P.8 mmHg ARNOLDO(I,D): 2.0 cm2 Ao V2 VTI: 24.4 cm ARNOLDO(V,D): 2.1 cm2 sev ratio: 0.68 ARNOLDO indexed to BSA (cm^2/m^2): 1.1 MV E max bishop: 117.7 cm/sec TR max bishop: 285.5 cm/sec Med Peak E' Bishop: 6.7 cm/sec TR max P.6 mmHg E/E' med: 17.5 PA V2 max: 59.1 cm/sec Lat Peak E' Bishop: 10.6 cm/sec PA V2 mean: 39.5 cm/sec E/E' lat: 11.1 PA mean P.71 mmHg E/e' average: 14.3 PA pr(Accel): 53.3 mmHg MV dec time: 0.10 sec MR ERO: 0.27 cm2 MR PISA: 3.3 cm2 SV(LVOT): 49.8 ml MR flow rate: 121.5 cm3/sec MR PISA radius: 0.72 cm Reading Physician:02:55 PM
--- NOTE | 2019-12-17 18:10 | PC.NURSE ---
1730- While eating it was noticed that patients heartrate was climbing. It is now sustained at 110-130. Patient asymtomatic except for a feeling of palpitations. Dr. Sumner aware, await orders.
[2019-12-17] MEDS: METOPROLOL IR 50 MG TABLET PO (18:31)
[2019-12-18 00:38] VITALS: BP 113/84; PULSE 97; RESP 20; TEMP 35.9; O2SAT 93
[2019-12-18 04:00] VITALS: PULSE 92; RESP 18; O2SAT 96
[2019-12-18 05:14] VITALS: BP 124/86; PULSE 58; RESP 20; TEMP 36.5; O2SAT 94
[2019-12-18 08:00] VITALS: BP 131/90; PULSE 90; RESP 19; TEMP 36.6; O2SAT 96
[2019-12-18] MEDS: APIXABAN 5 MG TABLET PO (08:08)
[2019-12-18] MEDS: METOPROLOL IR 50 MG TABLET PO (08:08)
[2019-12-18] MEDS: dilTIAZem CD 240 MG CAP PO (08:09)
--- NOTE | 2019-12-18 11:34 | PC.NURSE ---
Pt to d/c home per MD order. Provided d/c packet and educational materials re a fib, medications, doses, times, next dose due, side effects. Instructed pt in how to check her own pulse manually. Educated to normal range HR. Educated to stroke risk, when to seek emergency medical treatment, symptoms requiring follow-up. Pt states she is establishing care with REGINE Vazquez and has made her own appt. Removed telemetry. D/c'd IV with cath tip intact. Pt dressing herself and gathering her belongings. She is declining w/c transport to private vehicle.
[2019-12-18 16:38] LABS: Hep C Virus Ab w/Reflex Quant NEGATIVE s/c (NEGATIVE)
--- NOTE | 2019-12-18 16:55 | P.DS_ITS ---
History of Present Illness History of Present Illness Date Patient Seen: 12/18/19 Chief complaint: Shortness of breath found to be in atrial fib Narrative: Kevin Mayfield is a pleasant 69 y.o. seasonal resident of [facility] who has a history of seasonal allergies presented to the ED after developing fairly sudden shortness of breath. She had been working with her PCP in [facility] with symptoms of nasal congestion, headaches and cough. Initially she started taking over the counter decongestants, then given Azithromycin for a a presumed sinus infection. She states her breathing problems are attributable to wearing masks and have tried a number of different styles of masks with no avail. Today her shortness of breath felt like a previous case of pneumonia she had a number of years ago. She was unable to take in a deep breath. She has a persistent headache she attributes to her sinuses. Denies intentional weight loss, has not had much of an appetite, she does endorse fullness sensation in both ears and nasal congestion, has been nauseous but no vomiting. Denies chest pain, palpitations, states normally has low blood pressure. Denies dysurea, diarrhea or constipation, numbing or tingling of her upper or lower extremities. She does not take any chronic disease prescription medications, just supplements. In the ED, EKG indicated atrial fibrillation and she was initially given diltiazem 20 mg IV then intiated on a diltiazem drip. She was also given apixaban for anticoagulation. She is afebrile her blood pressure is 116/84, heart rate 88 and irregular, respiratory rate of 29, oxygen saturation of 94% on 3 L, she weighs 77.1 kg with a BMI of 28.3. White count is generally within normal limits except for low platelet count of a 125, INR is 1.1, D-dimer was 324 however PE has been ruled out by chest CTA, sodium 138, potassium 4.0, chloride 109, bicarb 20, BUN 24, GFR is greater than 60, creatinine is 0.9, glucose 110, calcium 9.4, magnesium 1.7, AST is 67, ALT 67 total bilirubin 0.9, troponin is negative at 0.012, COVID-19 is negative. Discharge Providers Provider Date of admission: 12/16/19 20:26 Discharge Date: 12/18/19 Discharge provider: Celine Arteaga MD Summary Hospital Course Discharge Diagnosis: 1. Atrial fibrillation 2. Chronic sinus disease Hospital Course: Patient was admitted to the hospital for rapid atrial fibrillation. She had excellent response to IV diltiazem. This was switched to oral diltiazem. Patient was making improvement but towards the end of the evening developed increasing heart rate. Metoprolol 50 b.i.d. was added to her regimen. Following day the patient's heart rate had improved. She had no further shortness of breath. She felt back to baseline was deemed appropriate for discharge home. The patient lives on [facility]. She will follow-up with a PCP here in 10 as she lives part of the year in [place] part of the year in [place]. In addition the patient will follow-up with her 's executive assistant to general counsel in [place]. They are planning to travel back within 2 weeks. Patient has no chest pain or palpitations. She was deemed appropriate for discharge and arrangements were made for her to discharge home. Status at Discharge Cognitive/behavioral status at discharge: oriented Functional status at discharge: independent ambulation Overall status at discharge: patient is back to baseline Time Spent with Patient Time spent: Less than 30 minutes Exam Vital Signs (past 8 hours): Fraction of Inspired Oxygen 0 Oxygen Delivery Method Room Air Oxygen Flow Rate 0 Narrative Exam Narrative: Pleasant female in no acute distress Lungs: Clear to auscultation Cardiac exam: Irregularly irregular normal S1-S2 Abdomen: Soft nontender nondistended Extremities: No edema Objective Labs Result Diagrams: 12/17/19 04:36 12/17/19 04:36 Labs: Laboratory Results - last 24 hr 12/17/19 04:36 Hepatitis C Antibody Negative Discharge Assessment & Plan Assessment and Plan Assessment: 1. Atrial fibrillator Plan of Treatment: 1. Continue apixaban Continue diltiazem Continue metoprolol Outpatient PCP appointment Follow-up with cardiology upon return to [place] in 2 weeks Discharge Plan Discharge Plan Patient Disposition: Home Discharge orders & Medications Prescriptions: New diltiazem HCl [Cardizem CD] 240 mg Capsule,Extended Release 24hr 240 mg PO DAILY Qty: 30 RF: 0 metoprolol tartrate 50 mg Tablet 50 mg PO BID 30 Days Qty: 60 RF: 0 Eliquis 5 mg Tablet 5 mg PO BID Qty: 30 RF: 0 Continued melatonin 2.5 mg Tablet,Chewable 10 mg PO BEDTIME RF: 0 mecobalamin (vitamin B12) 1,000 mcg Tablet,Chewable 1,000 mcg PO DAILY RF: 0 Discharge Health Status Multidrug resistant organism: No MDRO Diet/Activity/Treatments Diet: Low-sodium Visit Report/Discharge Packet Instructions: DI for Atrial Fibrillation, Apixaban, Metoprolol (By mouth), Diltiazem (By mouth) Visit Report Forms: Patient Portal/API, Stroke Signs & Symptoms Discharge Data Attending Provider: Rosa Llanes Admit Date/Time: 12/16/19 20:26 Discharges patient from system. Discharge Date/Time: 12/18/19 11:45
== END 2019-12-18 11:45 | disposition home or self-care (01) ==
LOC: ED 18:51 → AC 20:27 → ICU 23:04 → AC 12-17 12:06 → ICU 12-17 12:06
PROVIDERS: Internal Medicine; Admitting Provider Nurse Practitioner Family; Emergency Provider Emergency Medicine; Referring Provider Emergency Medicine; Visit Provider Nurse Practitioner Family
DX: I48.91 Unspecified atrial fibrillation (principal); R07.9 Chest pain, unspecified; R09.81 Nasal congestion; Z11.59 Encounter for screening for other viral diseases
CPT/HCPCS: 36415; 71045; 71275; 80048; 80053; 80061; 82550; 83690; 83735; 84443; 84484; 85025; 85379; 85610; 85730; 86803; 87635; 93005; 93306; 96361; 96365; 96366; 96375; 99284; 99291; G0378; Q9967